=== PATIENT | male | born 1980 | race Caucasian/White ===

== ENCOUNTER 2020-11-11 21:54 | Emergency (ER) | payer SELFPAY ==
[~2020-11-11] VITALS: Ht 172.7 cm; Wt 70.3 kg
[2020-11-11 23:51] VITALS: BP 116/86
--- NOTE | 2020-11-11 23:56 | ED General ---
General Chief Complaint: Cough/Cold/Flu Symptoms Stated Complaint: BRODERICK / COUGH / SOA Nursing Triage Note: C/O PRODUCTIVE COUGH WITH GREEN SPUTUM AND SOB WITH EXERTION. A&OX4 CALL LIGHT IN REACH Allergies and Home Medications Allergies Coded Allergies: No Known Drug Allergies (Unverified , 02/24/11) Past Oksqbwi-Dbkkag-Buhfvm Hx Patient Social History Tobacco Use?: Yes Tobacco type used: Cigarettes Smoking Status: Current Everyday Smoker Substance use?: Yes Substance type: Marijuana Substance frequency: Daily Pt feels they are or have been: No Immunizations Up To Date Influenza Vaccine Up-to-Date: No; Not Current First/Initial COVID19 Vaccinat: NOT VACCINATED Physical Exam Vital Signs Vital Signs - First Documented 11/11/20 22:10 Temp 36.7 Pulse 91 Resp 18 B/P (MAP) 137/90 (106) Pulse Ox 99 O2 Delivery Room Air Capillary Refill : Less Than 3 Seconds Height, Weight, BMI Height: '" Weight: lbs. oz. kg; 23.00 BMI Method: Progress/Results/Core Measures Suspected Sepsis SIRS Temperature: Pulse: 91 Respiratory Rate: 18 Blood Pressure 137 /90 Mean: 106 Results/Orders Lab Results Laboratory Tests Test 11/11/20 22:13 Range/Units Influenza Type A (RT-PCR) Not Detected Not Detecte Influenza Type B (RT-PCR) Not Detected Not Detecte SARS-CoV-2 RNA (RT-PCR) Negative Not Detecte My Orders Orders - DARIANA HANCOCK MD Covid 19 Inhouse Test (11/11/20 21:57) Influenza A And B By Pcr (11/11/20 21:57) Chest Pa/Lat (2 View) (11/11/20 22:51) Vital Signs/I&O 11/11/20 11/11/20 22:10 22:28 Temp 36.7 Pulse 91 Resp 18 B/P (MAP) 137/90 (106) Pulse Ox 99 O2 Delivery Room Air Room Air Capillary Refill : Less Than 3 Seconds Blood Pressure Mean: 106 Departure Impression Primary Impression: Cough Disposition: 01 HOME, SELF-CARE Condition: Improved Departure-Patient Inst. Decision time for Depature: 23:55 Referrals: NO,LOCAL PHYSICIAN (PCP/Family) Primary Care Physician Patient Instructions: Cough, Adult (DC) Add. Discharge Instructions: Your COVID-19 test was negative. You may use eyfj-[id number]-[id number] cough or cold medications to help with symptoms. Work toward quitting smoking to improve your overall long-term health and your lung health. Call with questions or concerns. Return to the ER if you have worsening symptoms. All discharge instructions reviewed with patient and/or family. Voiced understanding. Scripts No Active Prescriptions or Reported Meds DARIANA HANCOCK MD Nov 11, 2020 23:56
== END 2020-11-12 00:03 | disposition home or self-care (01) ==
LOC: EDUNIT# 21:54 → ER 21:56
DX: R05 Cough (principal); F17.210 Nicotine dependence, cigarettes, uncomplicated; Z20.822 Contact with and (suspected) exposure to COVID-19
CPT/HCPCS: 87636; 99282

== ENCOUNTER 2021-11-21 21:10 | Emergency (ER) | payer SELFPAY | END 2021-11-21 21:52 | disposition left against medical advice (07) | LOC: EDUNIT# 21:10 → ER 21:12 | DX: M25.531 Pain in right wrist (principal) ==